=== PATIENT | female | born 1955 | race Caucasian/White ===

== ENCOUNTER → 2021-11-20 | Outpatient (CLI) | payer BC, MEDICARE ==
[~2021-11-20] MED LIST: ALPR0.5T6 PO; ASCO500C9 PO; ASPI81TA59 PO; BIOT10004 PO; BUPR300T3 PO; CHRM1TAB PO; CRESTOR40 MG PO; CYAN100T21 PO; DICL75TA PO; DOXY100C3 PO; FEXO180T81 PO; FLUT100D2 IH; GLUC-142 PO; HYDR-2145 PO; KRIL1CAP40 PO; LOSA100T14 PO; METO100T7 PO; MULT-245 PO; OMEP20TA91 PO; SACC250C8 PO; SOUR1000 PO; SOY1TABL2 PO; VENL150T PO; ZINC50TA39 PO; [UNRECOGNIZED DRUG - CODE] TP
[2021-11-20 11:25] LABS: PROTHROMBIN TIME PATIENT 12.6 SEC (11.7-14.0)
[2021-11-20 11:32] LABS: BACTERIA,URINE FEW /HPF (0-FEW)
[2021-11-20 11:33] LABS: RBC,URINE 0 /HPF (0-2)
--- NOTE | 2021-11-20 12:30 | RAD ---
XR CHEST 2V INDICATION: PRE-OP EVAL FOR TOTAL KNEE REPLACEMENT COMPARISON STUDY: None. FINDINGS: Lungs: Normal lung volume. No pulmonary mass or consolidation. The tracheobronchial tree and hilar st ructures are normal. Pleura: No pleural effusion or pneumothorax. Heart and Mediastinum: The cardiomediastinal silhouette is normal. The great vessels of the thorax ar e normal. Bones and Soft Tissues: Degenerative changes of the spine. IMPRESSION: No acute cardiopulmonary process. Electronically signed by: Kyle Montes De Oca MD (11/20/2021 12:27 PM) [id number]
== END ==
LOC: SURGPAT 10:34
PROVIDERS: ATTEND Orthopaedic Surgery
DX: Z01.818 Encounter for other preprocedural examination (principal); M17.12 Unilateral primary osteoarthritis, left knee; M47.819 Spondylosis without myelopathy or radiculopathy, site unspecified
CPT/HCPCS: 36415; 71046; 81001; 85610; 85651; 85730; 87086; 87641

== ENCOUNTER 2021-12-05 06:06 | Observation (INO) | payer BC, MEDICARE ==
[2021-12-05] VITALS (11 sets, daily range): BP systolic 111–159; BP diastolic 65–97
[~2021-12-05] VITALS: Ht 165.1 cm; Wt 115.6 kg
[~2021-12-05 06:06] MED LIST changes: +ACETAMINOPHEN 500 MG TABLET PO PRN; +HYDROmorphone 2 MG/ML INJ. IVP PRN; +IV RINGERS,LACTATED 1000ML 1,000 ML IV SCH; +MELOXICAM 7.5 MG TABLET PO PRN; +MORPHINE SULFATE 2 MG/ML INJ. IVP PRN; +NORMAL SALINE IV PRN; +PROCHLORPERAZINE 10 MG/2 ML VIAL. IVP PRN; +TRANEXAMIC ACID 1,000 MG in IV NS 50ML -- 1ST BAG INJ ONE; +TV=62ml MORPHINE 5 MG, KETOROLAC 30 MG, ROPIV, EPI INT ART ONE; +VANCOMYCIN IV PRN; +fentaNYL PF VIAL 100 MCG/2 ML VIAL IVP PRN
[2021-12-05] MEDS ORDERED: PROPOFOL 10 MG/ML (20ML) VIAL. IV ONE (06:51)
[2021-12-05] MEDS ORDERED: MIDAZOLAM HCL/PF 2 MG/2 ML VIAL. ONE (06:51)
[2021-12-05] MEDS ORDERED: DEXAMETHASONE SOD PHOS 4 MG/ML VIAL ONE (06:51)
[2021-12-05] MEDS ORDERED: ONDANSETRON PF 4 MG/2 ML VIAL. ONE (06:51)
[2021-12-05] MEDS ORDERED: fentaNYL PF VIAL 100 MCG/2 ML VIAL ONE ×2 (06:52→10:24)
[2021-12-05] MEDS ORDERED: LIDOCAINE 2% PF 5 ML VIAL. ONE (06:52)
[2021-12-05] MEDS ORDERED: MORPHINE PF 10 MG/10 ML AMPUL. ONE (07:25)
[2021-12-05] MEDS ORDERED: TRANEXAMIC ACID 1,000 MG in IV NS 50ML -- 2ND BAG INJ ONE (08:00)
[2021-12-05] MEDS ORDERED: TRANEXAMIC ACID in NS IVPB 50 ML ONE ×2 (08:25→08:29)
--- NOTE | 2021-12-05 08:26 | HP ---
DATE OF SERVICE: 12/05/2021 ADMIT DATE: 12/05/2021 PREOPERATIVE HISTORY AND PHYSICAL PREOPERATIVE DIAGNOSIS: Severe left knee pain, unremitting. BRIEF HISTORY: The patient is a 66-year-old female who is here today for evaluation of her left knee for a left total knee arthroplasty. The pain has increased over the last 10-15 years. She has had a prior knee replacement and did very well in the right side, but unfortunately, she is having difficulty with her activities of daily living secondary to this left knee pain. The pain is unremitting at this point and again has not responded to any type of conservative therapies including physical therapy, injections, oral medications, etc. REVIEW OF SYSTEMS: Unremarkable other than her current musculoskeletal issues. PAST MEDICAL HISTORY: Hyperlipidemia, hypertension, diabetes, asthma, edema to bilateral lower extremity, lumbar stenosis, mastoiditis, cervicalgia, eczema, obesity, dizziness, depression, sleep apnea, and shortness of breath. PAST SURGICAL HISTORY: Total abdominal hysterectomy, tubal ligation, extraction of wisdom teeth, carpal tunnel release, right total knee replacement. FAMILY HISTORY: Cardiac disease. SOCIAL HISTORY: The patient is never a tobacco user. No alcohol as well. MEDICATIONS: Numerous and are listed on the chart and were reviewed from previous H and P from 09/26/2021, reviewed with the patient and are not changed at this point. MEDICATION ALLERGIES: LIPITOR, LISINOPRIL, LEVAQUIN, CLINDAMYCIN, AUGMENTIN, GABAPENTIN, AND PAXIL. OBJECTIVE: VITAL SIGNS: The patient is 67 inches tall, 240 pounds. GENERAL: She is alert and oriented x 3. CHEST: She is clear to auscultation in all thomas. ABDOMEN: Soft and nontender. HEENT: Within normal limits. EXTREMITIES: Examination of the left knee reveals her to be full extension, slight valgus deformity. Range of motion is up to 115 only. There are some signs of laxity of the lateral collateral ligament, but no instability in the varus, valgus or AP plane. There is proper tracking in patellofemoral joint, but apprehension of the patellofemoral joint as well as pain with palpation both medial and lateral joint lines. Positive Apley's test in the medial and lateral joint lines as well. IMPRESSION: Degenerative joint disease, left knee, severe. PLAN: At this point, we have reviewed and gone over everything again with her and her . She has gone over and understands the risks, complications as well as benefits and expectations of surgery, postoperative protocol and followup. We will proceed with this left total knee replacement after anesthesia, reviewed everything with her as far as that is concerned. LAVELL/KIN DR: Keli TID: [id number]
[2021-12-05] MEDS ORDERED: PHENYLEPHRINE in 0.9% NACL PF 1 MG/10 ML SYRINGE. IV ONE (08:29)
[2021-12-05] MEDS ORDERED: ePHEDrine PF IN SALINE 50 MG/10 ML SYRINGE. IV ONE (08:29)
[2021-12-05] MEDS ORDERED: PROPOFOL 100 ML IV ONE (08:36)
--- NOTE | 2021-12-05 09:29 | PDOC4 ---
OPERATIVE NOTE Date: Date: December 05, 2021 Pre-Op Diagnosis: Severe degenerative joint disease left knee Post-Op Diagnosis: Same Procedure Performed: Conformance left total knee arthroplasty Surgeon: Vidal Anesthesia Type: Spinal with IV sedation Blood Loss: 75 cc Specimans Obtained: Bone left knee Findings: Conformers left total knee arthroplasty with medial 7 lateral B tibial insert 32 patella Complications: None Operative Note: Patient was taken operative suite given a spinal anesthetic placed in a supine position on the table. Left lower extremity had a tourniquet placed thigh-high however is not inflated the left lower extremity was then prepped and draped in a sterile fashion after exsanguination tourniquet was inflated anterior incision was made through skin and subcutaneous tissues down to the extensor mechanism superficial bleeding was coagulated using Bovie knife. The medial parapatellar incision was then made following this the patella was noted to have severe degenerative changes as well as the femoral sulcus and the medial and lateral compartments. After eversion of the patella this was held with clamps and this was measured to the appropriate size after the cut was made for the backside of the patella this was measured and noted to be a size 32 therefore through the drill guide the guide was placed in appropriate position on the cut patella and the drill holes were made. This was then placed with a trial component and then the knee was taken into a flexed position the [place] guide was then placed on the distal femur and marked with the drill. Curette was used to remove excess cartilage at this point. After this was done the F to guide is placed in appropriate position and orientation drill holes were then made and held with pins both on the distal aspect the femur as well as on the anterior aspect of the femur. After this was noted be in excellent position and in all planes and held in good position the distal pins were then removed and marked. The saw was then used to make the distal cut this is noted to be a good flush cut. Following this the pins were placed in the distal femoral cut and the next guide was placed in appropriate position this is flat on the distal cut surface appropriate orientation was noted to be very good and the pins held this in medial and lateral positions the anterior the posterior and chamfer cut was made as well as to drill holes in the distal femoral aspect. This was all removed noted to be good flush cuts and excellent positioning. The final cutting block was placed on the femur the chamfer cuts were made x4. Following this the trial was placed and noted to be in good position of all posterior osteophytes had been also ready removed. Following this attention was directed to the tibia retractors were placed medially laterally and posteriorly the lateral and medial meniscal remnants were removed along with the ACL the PCL remained intact at this point. The guide was marked in appropriate position and then curette was used to remove excess cartilage from the proximal aspect of the tissue there is only minimal left. The guide was then placed in position held with pins in proper rotation and orientation and after retractors were noted to be in excellent position the proximal tibia was cut this no to be a good flush cut. The trials were then placed on the tibia as well as the femur and the patella trial was already in place this was taken through range of motion this is noted to be stable with medial 6 lateral B inserts in the tibia this is tracking appropriately as far as the patellofemoral joint with no instability. The flexion and extension gaps are noted to be stable and equal. Following this is the tibial trial was pinned in the drill and the keel was placed the appropriate depth and this was subsequently removed. Using the appropriate Bovie the capsule was then coagulated around its an area for prevention of postoperative b leeding. Attention was then directed to irrigation which has been irrigated throughout the case but significant irrigation was noted at this point and reinspection of all surfaces at this time. Cement was then picked mixed on the back table following this cement was placed on cut surfaces the tibia was impacted first followed by the femur this was held in extension with tibial tr ials until hardening of cement the same was done of the patella with patella undersurface being cemented and held with a clamp. Following this this was taken through range of motion excess cement was then removed there was noted be excellent tracking of the patellofemoral joint excellent stability and equal gapping in both flexion and extension at this point. The trials were then removed of the tibia and the actual tibial inserts were placed and no to be secured within the tibial plate taken through range of motion. The capsule was then infiltrated with local. After this was irrigated with Betadine followed by complete irrigation with sterile saline this was closed in a running fashion using strata fix. This is reinforced every 3 cm with #1 Ethibond. And then this was taken through range of motion and again noted to be stable in all planes and tracking appropriately. Therefore superficial tissues and skin was reapproximated locals placed within the superficial tissues as well sterile dressing was applied patient was taken from the operative bed to the postoperative bed taken to the PACU in stable condition JIMMY GALAN Jr. DO December 05, 2021 09:29
[2021-12-05] MEDS ORDERED: MORPHINE SULFATE 2 MG/ML INJ. IVP PRN (09:30)
[2021-12-05] MEDS ORDERED: diphenhydrAMINE 50 MG/ML VIAL IVP PRN (09:30)
[2021-12-05] MEDS ORDERED: 0.9 % SODIUM CHLORIDE 10 ML DISP.SYRIN. IV PRN (09:30)
[2021-12-05] MEDS: fentaNYL PF VIAL 100 MCG/2 ML VIAL IVP PRN ×2 (10:27→10:36)
--- NOTE | 2021-12-05 11:00 | NUR ---
RECEIVED FROM RECOVERY. HER MAIN COMPLAINTS ITCHING SHE HAS GROSS MOTOR MOVEMENTS IN HER LOWER EXTREMITIES, FEELS LIKE THEY ARE ASLEEP. GOOD PULSES. ADMISSION HISTORY COMPLETED. ARRIVES. IV INFUSING IN HER LEFT HAND. DRESSING TO LEFT KNEE IS CLEAN AND DRY.
--- NOTE | 2021-12-05 11:54 | HP ---
DATE OF SERVICE: 12/05/2021 ADMIT DATE: 12/05/2021 CHIEF COMPLAINT: Postop left knee replacement. HISTORY OF PRESENT ILLNESS: The patient is a pleasant 66-year-old female who underwent left knee replacement this morning. We have been requested to admit the patient for postop treatment and evaluation. PAST MEDICAL HISTORY: Right knee replacement a couple of years ago, hyperlipidemia, hypertension, diabetes, asthma, edema, lumbar stenosis, mastoiditis, cervicalgia, eczema, obesity, dizziness, depression, obstructive sleep apnea. ALLERGIES: ADHESIVE TAPE, AMOXICILLIN, ASPARTAME, ATORVASTATIN, CLAVULANIC ACID, CLINDAMYCIN, ERYTHROMYCIN, GABAPENTIN, LEVAQUIN, LISINOPRIL, AND PAROXETINE. FAMILY HISTORY: Hypertension. SOCIAL HISTORY: She is . She does not drink, smoke or take drugs. MEDICATIONS: Reviewed. Please refer to the MRAD. REVIEW OF SYSTEMS: GENERAL: No history of weight change, weakness or fevers. SKIN: No bruising, hair changes or rashes. EYES: No blurred, double or loss of vision. NOSE AND THROAT: No history of nosebleeds, hoarseness or sore throat. HEART: No history of palpitations, chest pain or shortness of breath on exertion. LUNGS: Denies cough, hemoptysis, wheezing or shortness of breath. GASTROINTESTINAL: Denies changes in appetite, nausea, vomiting, diarrhea or constipation. GENITOURINARY: No history of frequency, urgency, hesitancy or nocturia. NEUROLOGIC: Denies history of numbness, tingling, tremor or weakness. PSYCHIATRIC: No history of panic, anxiety or depression. ENDOCRINE: No history of heat or cold intolerance, polyuria or polydipsia. EXTREMITIES: She complains of left leg pain. PHYSICAL EXAMINATION: VITALS: Within normal limits and are stable. GENERAL: No apparent distress. Alert and oriented. HEENT: Normal cephalic atraumatic, external auditory canals are patent EYES: Extraocular muscles are intact, pupils are equally round and reactive to light and accommodation MUSKULOSKELETAL: Well developed, well nourished, good range of motion ENDOCRINE: No thyromegaly was palpated LYMPHATICS: No cervical chain or axillary nodes were noted HEMATOPOIETIC: No bruising NECK: Supple, no JVD, no thyromegaly was noted. LUNGS: Clear to auscultation in all lung thomas without rhonchi or wheezing. HEART: RRR, S1, S2 present. Peripheral pulses intact, no obvious murmurs were noted. ABDOMEN: Soft, nontender. Positive bowel sounds no organomegaly, normal bowel sounds. EXTREMITIES: She has brace on the left knee. NEUROLOGIC: Normal speech, normal tone. A and O x 3, moves all extremities, no obvious focal deficits. PSYCHIATRIC: Normal affect, normal mood. Stable. SKIN: No ulcerations or rashes, good skin turgor, no jaundice. VASCULAR: Good capillary refill, neurovascular bundle appears to be intact. LABORATORY DATA: COVID testing is negative. ASSESSMENT AND PLAN: Postoperative left knee replacement. We will trend her hemoglobins and other labs. PT, OT, wound care, home medications, DVT prophylaxis, full code. I discussed the case with her and nurse and the orthopedic surgeon. BONNIE/YOLIE DR: Rashawn TID: [id number]
[2021-12-05] MEDS: ONDANSETRON ODT 4 MG TAB.RAPDIS. PO SCH ×2 (12:00→17:30)
[2021-12-05] MEDS: ONDANSETRON PF 4 MG/2 ML VIAL. IVP SCH ×2 (12:00→16:14)
[2021-12-05] MEDS: hydrOXYzine 25 MG TABLET PO PRN (12:00)
--- NOTE | 2021-12-05 13:00 | NUR ---
Merle is feeling better. she no longer itches after atarax. she has fine motor movement and sensation in lower extremities. continues to deny pain and the need to void. explained that she is feeling sensation that we would be getting her up when she needs to voids; verbalized understanding.
[2021-12-05] MEDS ORDERED: METO50TA6 PO (13:23)
--- NOTE | 2021-12-05 15:18 | NUR ---
ambulated to the bathroom and voided with Physical therapy. she did well. voided at this time and is resti g in the recliner.
--- NOTE | 2021-12-05 15:59 | RAD ---
Exam: XR KNEE_LT 1-2 VIEWS History: Postop Comparison: None. Findings: Postsurgical features from left total knee arthroplasty. Well-seated distal femur and proximal tibial components. No fracture or dislocation. Alignment is anatomic. Expected subcutaneous and intra-artic ular air and edema consistent with recent instrumentation. Impression: 1. Left total knee arthroplasty without evidence of complication. Electronically signed by: Israel Cook MD (12/05/2021 10:04 AM) [id number]
[2021-12-05] MEDS: ACETAMINOPHEN 500 MG TABLET PO SCH (16:13)
[2021-12-05] MEDS ORDERED: VANCOMYCIN 1 GM in IV NORMAL SALINE 250ML 250 ML IV ONE (19:00)
[2021-12-05] MEDS ORDERED: BUDESONIDE 0.5 MG/2 ML NEBU. NEB SCH (20:00)
[2021-12-05] MEDS: ASPIRIN 325 MG TABLET PO SCH (20:26)
[2021-12-05] MEDS: oxyCODONE IR 5 MG TABLET PO PRN (20:26)
[2021-12-05] MEDS: METOPROLOL TART IMMED RELEASE 50 MG TABLET. PO SCH (20:27)
[2021-12-05] MEDS ORDERED: NON FORMULARY ITEM (Rosuvastatin Calcium (Crestor) 20 MG) PO SCH (21:00)
[2021-12-05] MEDS ORDERED: FLUTICASONE PROPIONATE IH SCH (21:00)
[2021-12-05] MEDS: ALPRAZolam 0.5 MG TABLET PO PRN (21:56)
[2021-12-06] MEDS: ONDANSETRON ODT 4 MG TAB.RAPDIS. PO SCH ×2 (00:21→05:10)
[2021-12-06] MEDS: ONDANSETRON PF 4 MG/2 ML VIAL. IVP SCH ×2 (00:21→05:10)
[2021-12-06] MEDS: oxyCODONE IR 5 MG TABLET PO PRN ×3 (05:09→18:16)
[2021-12-06] MEDS ORDERED: MAGNESIUM HYDROXIDE 2,400 MG/30 ML ORAL.SUSP. PO PRN (06:00)
[2021-12-06] MEDS: PANTOPRAZOLE 40 MG TABLET.DR. PO SCH (06:30)
[2021-12-06 07:00] VITALS: BP 158/80
--- NOTE | 2021-12-06 07:22 | PDOC ---
PROGRESS NOTES Date of Service DATE: 12/06/21 TIME: 07:15 Subjective Subjective POD #1 s/p L TKA Pt seen and examined this AM. Awake and alert sitting upright in bed. Nursing staff at bedside. Reports pain being 1-2/10. Tolerating PO intake. Denies CP/SOA. No abd pain/discomfort. 2500 on IS. No acute events reported overnight. Objective Vital Signs Vital Signs Date Time Temp Pulse Resp B/P (MAP) Pulse Ox O2 Delivery O2 Flow Rate FiO2 12/06/21 05:39 Room Air 12/06/21 05:09 95 12/05/21 23:00 98.1 80 20 135/82 (99) 98.1 12/05/21 11:34 2.0 Physical Exam Examination L knee: surgical dressing intact. No drainage or discharge. Compartments soft and compressible. Calf non-tender. Negative Vanda's sign. W iggles toes. EHL/FHL intact. Plantarflexion/dorsiflexion intact. Sensation to light touch intact throughout all dermatomes. Cap refill brisk. LLE warm and well perfused. Distal neurovascular status intact. No evidence of thrombus. Labs Laboratory Tests Test 12/05/21 06:15 POC SARS CoV-2 Antigen Negative (NEGATIVE) Imaging 2-view x-rays of the left knee performed post-operatively on 12/05 reviewed this AM. Orthopedic hardware in satisfactory alignment. No acute postoperative abnormalities noted. Assessment Assessment 66 y/o F s/p osteoarthritis L knee s/p L TKA 12/05 - Vidal * WBAT LLE * Pain control * DVT ppx (ASA 325mg BID); SCDs * Post-op abx (Cefazolin) * VSS this AM * Encourage use of IS while awake * ICE operative extremity prn pain/discomfort * Maintain surgical dressing L knee * PT/OT for mobilization, gait training, and fall prevention * CM for discharge planning; awaiting therapy recommendations * Follow up with orthopedic clinic in 1-2 weeks following discharge from the hospital. Call to schedule appointment. [phone] Justicifation of Admission Dx: Justifications for Admission: Justification of Admission Dx: Yes PILY CARTER December 06, 2021 07:22
[2021-12-06] MEDS ORDERED: OXYC5TAB88 PO (07:42)
[2021-12-06] MEDS ORDERED: ASPI325T8 PO (07:42)
[2021-12-06] MEDS: CYANOCOBALAMIN (VITAMIN B-12) 100 MCG TABLET. PO SCH (08:03)
[2021-12-06] MEDS: buPROPion XL 150 MG TAB.ER.24H. PO SCH (08:03)
[2021-12-06] MEDS: ALPRAZolam 0.5 MG TABLET PO PRN ×2 (08:03→21:03)
[2021-12-06] MEDS: hydrOXYzine 25 MG TABLET PO PRN (08:03)
[2021-12-06] MEDS: LACTOBACILLUS RHAMNOSUS GG 1 CAPSULE. PO SCH (08:03)
[2021-12-06] MEDS: SENNOSIDES/DOCUSATE 8.6/50MG TABLET. PO SCH (08:04)
[2021-12-06] MEDS: ASPIRIN 325 MG TABLET PO SCH ×2 (08:04→21:03)
[2021-12-06] MEDS: CETIRIZINE HCL 10 MG TABLET. PO SCH (08:04)
[2021-12-06] MEDS: ASCORBIC ACID 500 MG TABLET PO SCH (08:04)
[2021-12-06] MEDS: METOPROLOL TART IMMED RELEASE 50 MG TABLET. PO SCH ×2 (08:04→21:03)
[2021-12-06] MEDS: hydroCHLOROthiazide 25 MG TABLET PO SCH (08:04)
[2021-12-06] MEDS: DOXYCYCLINE HYCLATE 100 MG TABLET PO SCH (08:04)
[2021-12-06] MEDS ORDERED: NON FORMULARY ITEM (Biotin 1 TAB) PO SCH (09:00)
--- NOTE | 2021-12-06 10:11 | PDOC ---
[facility] PROGRESS NOTE Date of Service DOS: DATE: 12/06/21 TIME: 10:10 Chief Complaint Chief Complaint Postop day 1 left knee replacement History of the following; Right knee replacement a couple of years ago, hyperlipidemia, hypertension, diabetes, asthma, edema, lumbar stenosis, mastoiditis, cervicalgia, eczema, obesity, dizziness, depression, obstructive sleep apnea. History of Present Illness History of Present Illness 12/06/2021 Patient seen and examined She is having some sciatica pain Discussed with RN Discussed with case management Chart reviewed Vitals/I&O Vitals/I&O: Vital Signs Date Time Temp Pulse Resp B/P (MAP) Pulse Ox O2 Delivery O2 Flow Rate FiO2 12/06/21 08:04 66 158/80 12/06/21 07:33 Room Air 12/06/21 07:00 98.4 18 96 98.4 12/05/21 11:34 2.0 I & O 12/05/21 12/05/21 12/06/21 15:00 23:00 07:00 Intake Total 1000 ml Output Total 75 ml Balance 925 ml Physical Exam General: Alert Heart: Regular rate Lungs: Clear Abdomen: Normal bowel sounds Extremities: Other (Left knee with a brace) Skin: No rashes Assessment and Plan Assessmemt and Plan Postop day 1 left knee replacement History of the following; Right knee replacement a couple of years ago, hyperlipidemia, hypertension, diabetes, asthma, edema, lumbar stenosis, mastoiditis, cervicalgia, eczema, obesity, dizziness, depression, obstructive sleep apnea. Plan Wound care PT OT Home meds DVT prophylaxis Full code As needed pain meds Hope to discharge tomorrow with home health Comment Review of Relevant I have reviewed the following items deepak (where applicable) has been applied. Medications: Current Medications Medications (Trade) Dose Ordered Sig/Karin Route PRN Reason Start Time Stop Time Status Last Admin Dose Admin Senna/Docusate Sodium (Senna Plus) 1 tab DAILY PO 12/06/21 09:00 12/06/21 08:04 Acetaminophen (Tylenol) 1,000 mg Q6H PO 12/06/21 09:00 12/05/21 16:13 Ondansetron HCl (Zofran) 4 mg Q6HRS IVP 12/05/21 12:00 12/06/21 06:01 DC 12/05/21 16:14 Aspirin (Caryn Aspirin) 325 mg BID PO 12/05/21 21:00 12/06/21 08:04 Vancomycin HCl 1 gm/Sodium Chloride 250 ml @ 250 mls/hr 1X ONCE IV 12/05/21 19:00 12/05/21 19:59 DC 12/05/21 17:37 Hydroxyzine HCl (Atarax) 25 mg PRN Q6HRS PRN PO ITCHING 12/05/21 11:45 12/06/21 08:03 Alprazolam (Xanax) 0.5 mg PRN BID PRN PO ANXIETY / AGITATION 12/05/21 21:00 12/06/21 08:03 Cyanocobalamin (Vitamin B-12) 100 mcg DAILY PO 12/06/21 09:00 12/06/21 08:03 Hydrochlorothiazide (Hydrodiuril) 25 mg DAILY PO 12/06/21 09:00 12/06/21 08:04 Metoprolol Tartrate (Lopressor) 50 mg BID PO 12/05/21 21:00 12/06/21 08:04 Ascorbic Acid (Vitamin C) 500 mg DAILY PO 12/06/21 09:00 12/06/21 08:04 Bupropion HCl (Wellbutrin Xl) 300 mg DAILY PO 12/06/21 09:00 12/06/21 08:03 Doxycycline Hyclate (Vibra-Tab) 100 mg DAILY PO 12/06/21 09:00 12/06/21 08:04 Cetirizine HCl (ZyrTEC) 10 mg DAILY PO 12/06/21 09:00 12/06/21 08:04 Pantoprazole Sodium (Protonix) 40 mg DAILYAC PO 12/06/21 07:30 12/06/21 06:30 Lactobacillus Rhamnosus (Culturelle) 1 cap DAILY PO 12/06/21 09:00 12/06/21 08:03 Justifications for Admission Other Justification TYRESE KEY III DO December 06, 2021 10:11
[2021-12-06 11:00] VITALS: BP 121/71
[2021-12-06] MEDS: DICLOFENAC SODIUM 1% TOPICAL GEL 100GM TUBE. TP SCH ×2 (12:32→21:04)
[2021-12-06 15:00] VITALS: BP 124/67
[2021-12-06] MEDS: ACETAMINOPHEN 500 MG TABLET PO SCH ×2 (15:29→21:03)
[2021-12-06] MEDS ORDERED: BISACODYL 10 MG SUPP.RECT. PR PRN (16:00)
[2021-12-06 19:35] VITALS: BP 155/76
[2021-12-06 23:46] VITALS: BP 101/39
[2021-12-07] MEDS: ACETAMINOPHEN 500 MG TABLET PO SCH ×3 (03:13→15:00)
[2021-12-07 03:28] VITALS: BP 150/73
[2021-12-07 07:00] VITALS: BP 142/67
--- NOTE | 2021-12-07 07:17 | PDOC ---
PROGRESS NOTES Date of Service DATE: 12/07/21 TIME: 07:14 Subjective Subjective POD #2 s/p L TKA Patient was seen and examined this morning. Awake lying supine in bed. Reporting pain 1-2 out of 10. Denies chest pain or shortness of breath. Tolerating p.o. intake postoperatively. 2500 on IS. Patient has not yet had a bowel movement postoperatively but she does report passing flatus. No acute events reported overnight. Objective Vital Signs Vital Signs Date Time Temp Pulse Resp B/P (MAP) Pulse Ox O2 Delivery O2 Flow Rate FiO2 12/07/21 03:28 98.8 68 18 150/73 (98) 92 Room Air 98.8 12/05/21 11:34 2.0 Physical Exam Examination L knee: surgical dressing intact. Moderate amount of drainage noted to the inferior aspect of the dressing dried. Compartments soft and compressible. Calf non-tender. Negative Vanda's sign. Wiggles toes. EHL/FHL i ntact. Plantarflexion/dorsiflexion intact. Sensation to light touch intact throughout all dermatomes. Cap refill brisk. LLE warm and well perfused. Distal neurovascular status intact. No evidence of thrombus. Assessment Assessment 66 y/o F s/p osteoarthritis L knee s/p L TKA 12/05 - Vidal * WBAT LLE * Pain control * DVT ppx (ASA 325mg BID); SCDs * Post-op abx complete * VSS this AM * Encourage use of IS while awake * ICE operative extremity prn pain/discomfort * Maintain surgical dressing L knee * PT/OT for mobilization, gait training, and fall prevention * CM for discharge planning; pt stable for discharge from an orthopedic standpoint, follow up per details below. * Follow up with orthopedic clinic in 1-2 weeks following discharge from the hospital. Call to schedule appointment. [phone] Justicifation of Admission Dx: Justifications for Admission: Justification of Admission Dx: Yes PILY CARTER December 07, 2021 07:17
[2021-12-07] MEDS: CETIRIZINE HCL 10 MG TABLET. PO SCH (08:24)
[2021-12-07] MEDS: buPROPion XL 150 MG TAB.ER.24H. PO SCH (08:24)
[2021-12-07] MEDS: LACTOBACILLUS RHAMNOSUS GG 1 CAPSULE. PO SCH (08:25)
[2021-12-07] MEDS: CYANOCOBALAMIN (VITAMIN B-12) 100 MCG TABLET. PO SCH (08:25)
[2021-12-07] MEDS: PANTOPRAZOLE 40 MG TABLET.DR. PO SCH (08:25)
[2021-12-07] MEDS: METOPROLOL TART IMMED RELEASE 50 MG TABLET. PO SCH (08:25)
[2021-12-07] MEDS: ASPIRIN 325 MG TABLET PO SCH (08:25)
[2021-12-07] MEDS: ASCORBIC ACID 500 MG TABLET PO SCH (08:25)
[2021-12-07] MEDS: DOXYCYCLINE HYCLATE 100 MG TABLET PO SCH (08:26)
[2021-12-07] MEDS: SENNOSIDES/DOCUSATE 8.6/50MG TABLET. PO SCH (08:26)
[2021-12-07] MEDS: hydroCHLOROthiazide 25 MG TABLET PO SCH (08:26)
[2021-12-07] MEDS: DICLOFENAC SODIUM 1% TOPICAL GEL 100GM TUBE. TP SCH (08:30)
[2021-12-07] MEDS ORDERED: HYDR-2761 PO (10:07)
[2021-12-07] MEDS ORDERED: HYDR25TA PO (10:07)
--- NOTE | 2021-12-07 10:10 | SNU/HH DC ---
DISCHARGE WITH HOME HEALTH DISCHARGE INFORMATION: Condition on Discharge: Stable CODE STATUS: Code Status: Full HOME HEALTH: Face to Face: I certify this patient is under my care and that I, or a nurse practitioner or physician's assistant manager pt working with me, had a face to face encounter that meets the physician face to face encounter requirements with this patient on []. Medical Complications: Other (Recent left knee replacement) [facility] For: Assess & Educate Safety RN For Eval/Treatment: Yes Physical Therapy For: Evalulation/Treatment Occupational Therapy For: Evaluation/Treatment Home Health Aide For: Self-care SQL SERVER CONSULTANT For: Community Resources Pt Meets Homebound Status: Unsteady balance w/ amb, POST DISCHARGE ORDERS: DIET AFTER DISCHARGE: Cardiac CERTIFICATION STATEMENT: Certification Statement: Certification Statement: Based on the above finding, I certify that this patient is confined to the home and needs intermittent fci care, physical therapy and/or speech therapy, or continues to need occupational therapy.~ This patient is under my care, and I have initiated the establishment of the plan of care.~ This patient will be followed by myself or a community physician who will periodically review the plan of care. Home Meds Active Scripts Hydrocodone Bit/Acetaminophen (HYDROCODONE-APAP 5-325 ) 1 Tab Tablet, 1 TAB PO PRN Q6HRS PRN for PAIN for 10 Days, #20 TAB 0 Refills Prov:CASTLE,NIAL K III DO 12/07/21 Hydroxyzine Hcl (HYDROXYZINE HCL) 25 Mg Tablet, 25 MG PO PRN Q6HRS PRN for ITCHING for 14 Days, #30 TAB Prov:ANETALE,NIAL K III DO 12/07/21 Aspirin (ASPIRIN) 325 Mg Tablet, 325 MG PO BID for DVT ppx , #60 TAB 0 Refills Prov:PILY CARTER 12/06/21 Reported Medications Metoprolol Tartrate (METOPROLOL TARTRATE) 50 Mg Tablet, 1 TAB PO BID for heart, #60 TAB 5 Refills 12/05/21 Zinc (ZINC) 50 Mg Tablet, 1 TAB PO DAILY for suppliment for 30 Days, #30 TAB 0 Refills 11/20/21 Ascorbic Acid (Vitamin C) 500 Mg Capsule, 1 CAP PO DAILY for suppliment for 28 Days, #28 CAP 0 Refills 11/20/21 Cyanocobalamin (Vitamin B-12) (VITAMIN B-12) 100 Mcg Tablet, 100 MCG PO DAILY07 for suppliment, TAB 11/20/21 Sour Rendon Extract (Tart Rendon Extract) 1,000 Mg Capsule, 1000 MG PO BID for suppliment, CAP 11/20/21 Minoxidil (HAIR REGROWTH TREATMENT) 180 Ml Solution, 180 ML TP DAILY08 for suppliment, MISC 11/20/21 Saccharomyces Boulardii (Probiotic) 250 Mg Capsule, 1 CAP PO DAILY for suppliment for 14 Days, #14 CAP 0 Refills 11/20/21 Glucosamine/D3/Boswellia Marlene (Osteo Bi-Flex Tablet) 1 Each Tablet, 1 EACH PO BID for suppliment, TAB 11/20/21 Omeprazole (OMEPRAZOLE) 20 Mg Tablet.dr, 1 TAB PO DAILY for gerd, #90 TAB 1 Refill 11/20/21 Krill/Om-3/Dha/Epa/Phospho/Ast (Megared Manteno-3 Krill Oil Sfgl) 1 Each Capsule, 1 CAP PO DAILY for suppliment for 30 Days, #30 CAP 0 Refills 11/20/21 Soy Isofl/Blk Coh/Gr Tea/Yerba (Estroven Energy Caplet) 1 Each Tablet, 1 EACH PO DAILY08 for suppliment, TAB 11/20/21 Multivitamin (MULTI VITAMIN DAILY) 1 Each Tablet, 1 TAB PO DAILY for suppliment for 30 Days, #30 TAB 0 Refills 11/20/21 Biotin (Biotin) 1,000 Mcg Tab.chew, 1 TAB PO DAILY for suppliment for 30 Days, #30 TAB 0 Refills 11/20/21 Chrm/Wanda/ Bt-Org Peel/Gr T (APPLE CIDER VINEGAR PLUS TB) 1 Each Tablet, 1 EACH PO DAILY for suppliment, TAB 11/20/21 Fexofenadine Hcl (HARISH ALLERGY) 180 Mg Tablet, 1 TAB PO DAILY for allergy symptoms for 14 Days, #14 TAB 0 Refills 11/20/21 Alprazolam (ALPRAZOLAM) 0.5 Mg Tablet, 1 TAB PO BID for anxiety, #60 TAB 11/20/21 Fluticasone Propionate (FLOVENT 100MCG DISKUS) 100 Mcg Disk.w.dev, 200 MCG IH BID for asthma, EACH 11/20/21 Hydrochlorothiazide (HYDROCHLOROTHIAZIDE TABLET ) 25 Mg Tablet, 25 MG PO DAILY for DIURETIC, TAB 0 Refills 11/20/21 Metoprolol Tartrate (METOPROLOL TARTRATE) 100 Mg Tablet, 100 MG PO DAILY08 for FOR HYPERTENSION, #60 TAB 0 Refills 11/20/21 Rosuvastatin Calcium (CRESTOR) 40 Mg Tablet, 20 MG PO HS for FOR CHOLESTEROL, #30 TAB 0 Refills 11/20/21 Venlafaxine Hcl (VENLAFAXINE HCL ER) 150 Mg Tab.er.24, 150 MG PO DAILY for pain, CAP.SR 11/20/21 Bupropion Hcl (WELLBUTRIN XL) 300 Mg Tab.er.24h, 1 TAB PO DAILY for anxiety, #90 TAB 3 Refills 11/20/21 Discontinued Reported Medications Doxycycline Hyclate (DOXYCYCLINE HYCLATE) 100 Mg Capsule, 1 CAP PO DAILY07 for acne, #14 CAP 11/20/21 Aspirin (Children's Aspirin) 81 Mg Tab.chew, 1 TAB PO DAILY for suppliment for 30 Days, #30 TAB 0 Refills 11/20/21 Diclofenac Sodium (DICLOFENAC SODIUM) 75 Mg Tablet.dr, 100 MG PO DAILY for pain, TAB.SR 11/20/21 Losartan Potassium (LOSARTAN POTASSIUM) 100 Mg Tablet, 100 MG PO DAILY for HYPERTENSION, TAB 11/20/21 TYRESE KEY III DO December 07, 2021 10:10
[2021-12-07] MEDS: oxyCODONE IR 5 MG TABLET PO PRN ×2 (10:52→13:50)
[2021-12-07 11:00] VITALS: BP 146/69
[2021-12-07 13:21] LABS: HEMOGLOBIN 12.8 g/dL (12.0-15.5)
--- NOTE | 2021-12-07 15:27 | DS ---
DATE OF DISCHARGE: 12/07/2021 ADMISSION DIAGNOSIS: Elective left knee replacement. DISCHARGE DIAGNOSES: Postoperative day #2 left knee replacement with history of hyperlipidemia, hypertension, diabetes, asthma, edema, lumbar stenosis, mastoiditis, eczema, obesity, dizziness, depression, obstructive sleep apnea. HOSPITAL COURSE: The patient is a pleasant, middle-aged female who presented for an elective left knee replacement. Postoperatively, she did well. We did wound care, IV antibiotics, pain meds and nausea meds. We did physical therapy and occupational therapy. Today, I saw and examined her. She is doing well. Her wound looks good. We plan to discharge. DISPOSITION: Home with home health. ACTIVITY: As tolerated. DIET: Low sodium. DISCHARGE MEDICATIONS: Please see the MRAD. I sent her a prescription for hydrocodone 5 mg q.6 hours, p.r.n. Zofran, aspirin 325 a day, Xanax 0.5 a day, vitamin C, Biotin, Wellbutrin-XL 300 a day, vitamins, Fabiola 180 a day, fluticasone, glucosamine, hydrochlorothiazide 25 a day, krill oil, metoprolol 100 a day, minoxidil 180 a day, multiple vitamins, omeprazole 20 a day, Crestor 20 a day, probiotics, sour luong extract, venlafaxine 150 a day, and zinc 50 a day. TOTAL TIME: 32 minutes. [facility] [place]: BONNIE/lee TID: [id number]
--- NOTE | 2021-12-07 16:00 | NUR ---
Discharge instructions given. Answered questions and concerns. Verbalized understanding. Pt discharged home with home health. Escorted out by w/c accompanied by spouse.
--- NOTE | 2021-12-07 17:10 | PATHOLOGY ---
[facility] Accession Number: [id number] . 01 Material submitted: . knee - LEFT KNEE BONE/TISSUE . 01 Clinical history: . L KNEE PAIN . 02 Diagnosis: Segments of bone and articular cartilage with focal attached soft tissue, left total knee arthroplasty: - Advanced degenerative arthritis. (JPM:tammie; 12/07/2021) MBR 12/07/2021 1431 Local . 02 Electronically signed: . Ace De Santiago MD, Pathologist NPI- [id number] . 01 Gross description: . The specimen is received in formalin, labeled "Merle Alberts, left knee bone/tissue gross only". It consists of multiple pieces of bone with extensive osteophyte formation. The bone pieces range in size from 2.4 x 2.1 x 0.9 cm to 7.8 x 6.5 x 1.7 cm (tibial plateau). Most of the bone pieces are covered in cartilage, which appears heard, focally denuded, and granular. Some cartilaginous surfaces display extensive eburnation. Bilateral eburnation is present on the tibial plateau. Capital Equipment Specialist sections are submitted as follows, following decalcification: A1-A2: Bone with cartilage (JGG; 12/05/2021) JGG/JGG 12/05/2021 2343 Local . 02 Pathologist provided ICD-10: M17.12 . 02 CPT . 961010, [id number] Specimen Comment: A courtesy copy of this report has been sent to [phone], [phone] Specimen Comment: 2030 Specimen Comment: Report sent to / DR GARCES Performed at: [address], [place] [id number] MD Mynor Brennan MD Phone: [phone] Performed at: [address] [id number] MD Ace De Santiago MD Phone: [phone]
== END 2021-12-07 16:00 | disposition home health service (06) ==
LOC: SURG 06:06 → 4 NORTH 09:44 → INTOOBSV 09:44
PROVIDERS: ADMIT Internal Medicine; ATTEND Internal Medicine
DX: M17.12 Unilateral primary osteoarthritis, left knee (principal); Z20.822 Contact with and (suspected) exposure to COVID-19; G89.29 Other chronic pain; M25.562 Pain in left knee; E11.9 Type 2 diabetes mellitus without complications; E66.9 Obesity, unspecified; E78.5 Hyperlipidemia, unspecified; I10 Essential (primary) hypertension; J45.909 Unspecified asthma, uncomplicated; G47.33 Obstructive sleep apnea (adult) (pediatric); F32.A Depression, unspecified; H70.90 Unspecified mastoiditis, unspecified ear; L30.9 Dermatitis, unspecified; M48.061 Spinal stenosis, lumbar region without neurogenic claudication; M54.30 Sciatica, unspecified side; Z90.710 Acquired absence of both cervix and uterus; Z96.651 Presence of right artificial knee joint; Z98.51 Tubal ligation status; Z79.899 Other long term (current) drug therapy; Z98.890 Other specified postprocedural states
CPT/HCPCS: 27447; 36415; 73560; 85014; 85018; 86850; 86900; 86901; 88305; 88311; 96365; 96366; 96375; 97110; 97116; 97150; 97166; 97530; 97535; A4213; A4930; A6253; A6258; A6450; A6550; C1713; C1755; C1776; G0378; G0379; J0171; J1100; J1200; J1885; J2250; J2270; J2274; J2370; J2405; J2704; J2795; J3010; J3370; J7050; A4223; J7030